=== PATIENT | male | born 1970 ===

== ENCOUNTER → 2018-09-27 | Outpatient (CLI) | payer BC ==
--- NOTE | 2018-09-27 16:02 | Diagnostic Imaging Report ---
PROCEDURE: CT urinary tract, rule out kidney stone. TECHNIQUE: Multiple contiguous axial images were obtained through the abdomen and pelvis without the use of intravenous contrast. INDICATION: Hematuria, right flank pain, and fever. COMPARISON: None. FINDINGS: The lung bases are clear. The heart is normal in size. There is no pericardial effusion. Evaluation of the solid organs is suboptimal in the absence of contrast; however, the liver, spleen, adrenal glands, and pancreas appear normal on this exam. There is no hydronephrosis or hydroureter. No obstructing renal calculi are seen. There is a nonobstructing calculus in the left kidney measuring 6 mm in size. There is mild periureteral fat stranding bilaterally. The bowel loops are nondistended without evidence of obstruction. The appendix is normal. No free fluid or free air is seen. No acute osseous abnormality is seen. IMPRESSION: 1. Nonobstructing calculus in the left kidney. No obstructing renal calculi are seen. 2. Mild periureteral fat stranding bilaterally, please correlate with urinalysis to exclude urinary tract infection. Dictated by: Dictated on workstation # [id number]
== END ==
LOC: RAD 15:18
PROVIDERS: ATTEND Registered Nurse
DX: N20.0 Calculus of kidney (principal)
CPT/HCPCS: 74176

== ENCOUNTER → 2019-01-30 | Outpatient (CLI) | payer BC ==
[~2019-01-30] MED LIST: NITR-65 PO; TAMS0.4C98 PO; TRAM50TA2 PO
== END | disposition home or self-care (01) ==
LOC: PREOP 06:56
PROVIDERS: ATTEND Urology
DX: Z01.818 Encounter for other preprocedural examination (principal)

== ENCOUNTER 2019-01-31 06:21 | Day surgery (SDC) | payer BC ==
[~2019-01-31] VITALS: Ht 177.8 cm; Wt 96.7 kg
[2019-01-31] MEDS ORDERED: cefTRIAXone 1,000 MG IV (ROCEPHIN) VIAL ONE (06:53)
[2019-01-31 06:55] VITALS: BP 134/79
[2019-01-31] MEDS ORDERED: ONDANSETRON 4 MG/2 ML (SDV) Z0FRAN ONE (06:59)
[2019-01-31] MEDS ORDERED: SEVOFLURANE (ULTANE) 15 ML INHAL SOLN ONE (06:59)
[2019-01-31] MEDS ORDERED: MIDAZOLAM 2 MG/2 ML (VERSED) VIAL ONE (06:59)
[2019-01-31] MEDS ORDERED: DEXAMETHASONE 10 MG/ML (DECADRON) 1 ML VIAL ONE (06:59)
[2019-01-31] MEDS ORDERED: proPOfol 200 MG/20 ML (DIPRIVAN) VIAL IV ONE ×2 (06:59→08:42)
[2019-01-31] MEDS ORDERED: FUROSEMIDE 40 MG/4 ML INJ (LASIX) ONE (06:59)
[2019-01-31] MEDS ORDERED: LIDOCAINE PF 2% 5 ML (XYLOCAINE) VIAL ONE (06:59)
[2019-01-31] MEDS ORDERED: KETOROLAC 30 MG/ML VIAL ONE (06:59)
[2019-01-31] MEDS ORDERED: fentaNYL INJECTION 100 MCG/2 ML AMP ONE (06:59)
--- NOTE | 2019-01-31 07:10 | Progress Note-Pre Operative ---
Pre-Operative Progress Note H&P Reviewed The H&P was reviewed, patient examined and no changes noted. Date Seen by Provider: Jan 31, 2019 Time Seen by Provider: 07:10 Date H&P Reviewed: Jan 31, 2019 Time H&P Reviewed: 07:10 Pre-Operative Diagnosis: LT RENAL STONE ANIRUDH ALEX MD Jan 31, 2019 07:10
--- NOTE | 2019-01-31 07:11 | Progress Note-Post Operative ---
Post-Operative Progess Note Surgeon (s)/District Fire Management Officer (s) Surgeon ANIRUDH ALEX MD District Fire Management Officer: NONE Pre-Operative Diagnosis LT RENAL STONE Post-Operative Diagnosis SAME Procedure & Operative Findings Date of Procedure 01/31/19 Procedure Performed/Findings LT ESWL Anesthesia Type GENERAL Estimated Blood Loss Estimated blood loss (mL): NONE Specimens/Packing Specimens Removed NONE Packing: NONE ANIRUDH ALEX MD Jan 31, 2019 07:11
--- NOTE | 2019-01-31 07:13 | Discharge Inst-Urology ---
Discharge Inst-Urology Discharge Medications New, Converted, or Re-newed RX: RX on Chart Patient Instructions/Follow Up Plan Please make appointment to been seen in office in 4 weeks. KUB prior to it KUB on way home Post ESWL instructions Increase oral fluids for 48 hours and then as needed. Diet and Activity as tolerated. If questions or concerns contact your physician Or seek help at emergency department. ANIRUDH ALEX MD Jan 31, 2019 07:13
[2019-01-31] MEDS: LACTATED RINGERS 1,000 ML IV PRN ×2 (08:03→08:35)
--- NOTE | 2019-01-31 08:11 | Diagnostic Imaging Report ---
INDICATION: Status post lithotripsy. COMPARISON: 02/24/2013. FINDINGS: No radiopaque stones along the expected urinary tract path. Nonobstructive bowel gas pattern. Normal regional skeleton. IMPRESSION: No radiographically apparent urinary tract calculi. Dictated by: Dictated on workstation # [id number]
[2019-01-31] MEDS ORDERED: CATHETER FLUSH 10 ML SYR IV PRN (08:15)
[2019-01-31] MEDS ORDERED: cefTRIAXone 1,000 MG/SWFI 10 ML IV PUSH IV ONE ×2 (08:15)
[2019-01-31] MEDS ORDERED: PHENYLEPHRINE 100 MCG/ML 10 ML (ANESTHESIA) SYR ONE (08:45)
[2019-01-31] MEDS ORDERED: ONDANSETRON 4 MG/2 ML (SDV) Z0FRAN IVP PRN (09:00)
[2019-01-31] MEDS ORDERED: fentaNYL INJECTION 100 MCG/2 ML AMP IVP ONE (09:00)
[2019-01-31] MEDS ORDERED: NITR-65 PO (09:11)
[2019-01-31] MEDS ORDERED: TAMS0.4C98 PO (09:13)
[2019-01-31] MEDS ORDERED: TRAM50TA2 PO (09:13)
[2019-01-31 09:45] VITALS: BP 116/79
[2019-01-31 10:15] VITALS: BP 107/73
[2019-01-31 10:45] VITALS: BP 115/79
--- NOTE | 2019-01-31 11:20 | Anesthesia-General Post-Op ---
General Patient Condition Mental Status/LOC: Same as Preop Cardiovascular: Satisfactory Nausea/Vomiting: Absent Respiratory: Satisfactory Pain: Controlled Complications: Absent Post Op Complications Complications None Follow Up Care/Instructions Patient Instructions None needed. Anesthesia/Patient Condition Patient Condition Patient is doing well, no complaints, stable vital signs, no apparent adverse anesthesia problems. No complications reported per nursing. OMAIRA SMITH CRNA Jan 31, 2019 11:20
--- NOTE | 2019-01-31 11:21 | Diagnostic Imaging Report ---
INDICATION: Nephrolithiasis KUB 10:26 AM There is a 3 mm calcification projecting over the inferior pole of the left kidney. Right kidney and ureteral distribution are clear. Bladder appears clear. IMPRESSION: Left nephrolithiasis. Dictated by: Dictated on workstation # [id number]
--- NOTE | 2019-01-31 11:44 | OPERATIVE REPORT ---
DATE OF SERVICE: 01/31/2019 PREOPERATIVE DIAGNOSIS: Left renal stone. POSTOPERATIVE DIAGNOSIS: Left renal stone. OPERATION PERFORMED: Left ESWL. SURGEON: Davi Alex MD. ANESTHESIA: General. COMPLICATIONS: None. DESCRIPTION OF PROCEDURE: Under satisfactory general anesthesia, the patient was supine on the ESWL table. The left renal stone was localized with some difficulty and shocks were delivered at kV of 4. Total of 1500 shocks completely made the stone disappeared. The patient received 40 mg of Lasix and 30 mg of Toradol IV at the end of the procedure. He tolerated the procedure and anesthesia well and was sent to recovery room in stable condition. Job ID: [id number] DocumentID: [id number] Dictated Date: 01/31/2019 08:52:13 Mobile Nurse Date: 01/31/2019 11:44:04 Dictated By: DAVI ALEX MD
== END 2019-01-31 11:20 | disposition home or self-care (01) ==
LOC: SDC 06:21
PROVIDERS: ATTEND Urology
DX: N20.0 Calculus of kidney (principal); Z87.891 Personal history of nicotine dependence
CPT/HCPCS: 74018; 87081

== ENCOUNTER 2019-03-03 15:56 | Outpatient (RCR) | payer BC, OTHER | END 2019-06-01 | disposition home or self-care (01) | LOC: LAB 15:56 | PROVIDERS: ATTEND Urology | DX: N20.0 Calculus of kidney (principal) | CPT/HCPCS: 36415; 82140; 82340; 82507; 82570; 83735; 83945; 83986; 84105; 84133; 84300; 84392; 84560 ==

== ENCOUNTER 2019-09-29 11:01 | Outpatient (RCR) | payer BC ==
[~2019-09-29 11:01] MED LIST changes: -TAMS0.4C98 PO; +TMSL.4C PO; -TRAM50TA2 PO; +TRM50T PO
--- NOTE | 2019-09-29 12:11 | Diagnostic Imaging Report ---
EXAMINATION: Supine abdomen at 1121 hours. INDICATION: Nephrolithiasis. The prior exam of 01/31/2019 noted 3 mm calculus overlying the inferior pole of the left kidney. That finding is difficult to appreciate on this study. There is no other calcific density overlying the kidneys or along the expected paths of the ureters. There is no mass, organomegaly or pathological calcification noted otherwise. The bowel gas pattern is nonspecific. The osseous structures are intact. IMPRESSION: 1. There is no evidence for a calcification overlying the kidneys or the expected paths of the ureters. If further study is desired, then CT of the abdomen and pelvis would be recommended. 2. There is no acute abnormality identified. Dictated by: Dictated on workstation # [id number]
== END 2019-12-28 | disposition home or self-care (01) ==
LOC: RAD 11:01
PROVIDERS: ATTEND Urology
DX: N20.0 Calculus of kidney (principal)
CPT/HCPCS: 36415; 74018; 82140; 82340; 82507; 82570; 83735; 83945; 83986; 84105; 84133; 84300; 84392; 84560

== ENCOUNTER → 2021-10-10 | Outpatient (CLI) | payer BC, OTHER ==
--- NOTE | 2021-10-10 11:03 | Diagnostic Imaging Report ---
PROCEDURE: CT sinuses without contrast TECHNIQUE: Multiple contiguous axial images were obtained through the sinuses without the use of intravenous contrast. Coronal and sagittal reformations were then performed. Auto Exposure Controls were utilized during the CT exam to meet ALARA standards for radiation dose reduction. INDICATION: Frontal head pain and chronic sinusitis. COMPARISON: No relevant comparison. There is a small low-density mucus retention cyst in the floor of the right maxillary sinus measuring 1.3 cm maximal. There is minute amount of membrane thickening in the floor of the left maxillary sinus at about 2 mm thickness. There is small leftward nasal septal spur. The turbinates unremarkable. The ethmoid air cells clear. The ostiomeatal units appeared normal. The maxillary sinus ostia bilaterally widely patent. Frontal sinuses clear and well aerated. The nasal bones unremarkable. Frontal sinuses clear. There is no mastoid effusion, external auditory canals and middle ear cavities normal. Sphenoid sinuses clear and well aerated. The orbital contents unremarkable. IMPRESSION: Very mild bilateral maxillary sinus membrane disease with small right mucus retention cyst. No ostial obstruction, bony destruction or air-fluid levels. Dictated by: Dictated on workstation # [id number]
== END ==
LOC: RAD 09:15
PROVIDERS: ATTEND Otolaryngology Otolaryngology/Facial Plastic Surgery
DX: J34.1 Cyst and mucocele of nose and nasal sinus (principal); J32.9 Chronic sinusitis, unspecified
CPT/HCPCS: 70486

== ENCOUNTER 2023-05-12 07:01 | Outpatient (CLI) | payer BC ==
[~2023-05-12] VITALS: Ht 177.8 cm; Wt 103.9 kg
[2023-05-12] MEDS ORDERED: NAPR-1070 PO (10:34)
[2023-05-12] MEDS ORDERED: NF-VITD400 PO (10:34)
[2023-05-12] MEDS ORDERED: OMEP20TA56 PO (10:34)
== END 2023-05-12 10:35 ==
LOC: PREOP 07:01
PROVIDERS: ATTEND Surgery
DX: Z01.818 Encounter for other preprocedural examination (principal)

== ENCOUNTER 2023-05-21 10:17 | Day surgery (SDC) | payer BC ==
[~2023-05-21] VITALS: Ht 178 cm; Wt 103.9 kg
[~2023-05-21 10:17] MED LIST changes: +NAPR-1070 PO; +NF-VITD400 PO; +OMEP20TA56 PO
[2023-05-21] MEDS ORDERED: LACTATED RINGERS 1,000 ML IV STA (10:18)
[2023-05-21] MEDS ORDERED: HURRICAINE EXT TUBE (BENZOCAINE) ONE (10:29)
[2023-05-21] MEDS ORDERED: LACTATED RINGERS 1,000 ML IV ONE (10:29)
[2023-05-21] MEDS ORDERED: HURRICAINE EXT TUBE (BENZOCAINE) XX PRN (10:30)
[2023-05-21 10:40] VITALS: BP 142/79
--- NOTE | 2023-05-21 11:00 | Progress Note-Pre Operative ---
Pre-Operative Progress Note Date of Available H&P: May 04, 2023 Date H&P Reviewed: May 21, 2023 Time H&P Reviewed: 10:56 History & Physical: H&P Reviewed, Patient Examed, No changes noted Pre-Operative Diagnosis: GERD, Screening ROBERTO CORCORAN DO May 21, 2023 11:00
[2023-05-21] MEDS ORDERED: MIDAZOLAM 2 MG/2 ML (VERSED) VIAL ONE (11:31)
[2023-05-21] MEDS ORDERED: PROPOFOL INJECTION 50 ML IV ONE (11:31)
--- NOTE | 2023-05-21 12:04 | Anesthesia-General Post-Op ---
MAC Patient Condition Mental Status/LOC: Same as Preop Cardiovascular: Satisfactory Nausea/Vomiting: Absent Respiratory: Satisfactory Pain: Controlled Complications: Absent Post Op Complications Complications None Follow Up Care/Instructions Patient Instructions None needed. Anesthesiology Discharge Order Discharge Order Patient is doing well, no complaints, stable vital signs, no apparent adverse anesthesia problems. No complications reported per nursing. SHALINI SIMPSON CRNA May 21, 2023 12:04
[2023-05-21 12:05] VITALS: BP 87/58
[2023-05-21 12:10] VITALS: BP 95/58
--- NOTE | 2023-05-21 12:13 | Progress Note-Post Operative ---
Post-Operative Progess Note Surgeon (s)/Pump House Operator (s) Surgeon ROBERTO CORCORAN DO Pump House Operator: none Pre-Operative Diagnosis GERD, Screening Post-Operative Diagnosis Gastritis Esophagitis possible [place]'s Polyp int hemorrhoids Procedure & Operative Findings Date of Procedure 05/21/23 Procedure Performed/Findings EGD with biopsy Colonoscopy with biopsy PROCEDURE NOTE: After informed consent was obtained, the patient was brought to the endoscopy suite, placed in bed in left lateral decubitus position. He was administered IV sedation by the [employer] who then monitored vitals the entire time, heart rate, blood pressure and pulse ox and the scope was inserted down the mouth through the esophagus into the stomach. On the way down, noted some moderate to severe esophagitis, took a picture, pushed into the stomach, pushed past the antrum into the duodenum. Duodenum looked good. Pulled back and did a biopsy of the antrum, then retroflexed the scope, saw hiatal hernia, took a picture of this and then pulled the scope into the GE junction, took another picture of the hiatal hernia and then did a biopsy of the GE junction. Pushed the scope back into the stomach, suctioned all the air out of the stomach. At this point pulled the scope up the esophagus and out the mouth. Switched camera, switched gloves, went down below and started the colonoscopy. Pushed all the way to about 150 cm and pushed into the cecum, took a picture of appendiceal orifice and noted the ileocecal valve. Then slowly withdrew the scope insufflating to look circumferentially at the wood starting in the cecum, up the ascending colon to the hepatic flexure, then down the transverse colon. Found a small flat polyp and did a biopsy of it. Then to the splenic flexure, into the descending colon down and found another polyp. I did another biopsy of this and finally into the sigmoid and then into the rectal vault. Retroflexed the scope. Took a picture of the internal hemorrhoids. The patient tolerated the procedure and he recovered in the endoscopy suite. Recommended for repeat colonoscopy in 5 years Anesthesia Type IV sedation by [employer] Estimated Blood Loss Estimated blood loss (mL): scant Specimens/Packing Specimens Removed antral bx GE jxn bx Polyps int hemorrhoids ROBERTO CORCORAN DO May 21, 2023 12:13
--- NOTE | 2023-05-21 12:17 | Endoscopy Discharge Instruct ---
Endo Procedure/Findings Findings 1.: Gastritis 2.: Hiatal Hernia 3.: Polyp 4.: Internal Hemorrhoids Discharge Instructions - Activity: You might feel a little sleepy until tomorrow. This is due to the medicine you received to relax you. Until tomorrow, you should: NOT drive a car, operate machinery or power tools. NOT drink any alcoholic beverages. NOT make any important decisions or sign importortant papers. Do not return to work until tomorrow, unless otherwise instructed. Resume previous activities tomorrow. Diet: Start by taking liquids. If you tolerate liquids, advance to solid food. 1.: EGD in 1 year 2.: Colonscopy in 5 years Notify Physician - If you experience excessive bleeding, unusual abdominal pain, fever, or chest pain, contact your doctor immediately. Follow-Up: Other Follow up in my office in one week ROBERTO CORCORAN DO May 21, 2023 12:17
[2023-05-21 12:21] VITALS: BP 95/58
[2023-05-21 12:44] VITALS: BP 95/58
== END 2023-05-21 12:30 | disposition home or self-care (01) ==
LOC: ENDO 10:17
PROVIDERS: ATTEND Surgery
DX: Z12.11 Encounter for screening for malignant neoplasm of colon (principal); D12.3 Benign neoplasm of transverse colon; D12.4 Benign neoplasm of descending colon; K64.8 Other hemorrhoids; K29.70 Gastritis, unspecified, without bleeding; K21.00 Gastro-esophageal reflux disease with esophagitis, without bleeding; Z87.891 Personal history of nicotine dependence; E66.9 Obesity, unspecified; Z68.32 Body mass index [BMI] 32.0-32.9, adult; K31.89 Other diseases of stomach and duodenum

== ENCOUNTER → 2023-06-18 | Outpatient (CLI) | payer BC ==
--- NOTE | 2023-06-18 14:17 | Diagnostic Imaging Report ---
EXAMINATION: US Thyroid. TECHNIQUE: Multiple real-time grayscale images were obtained of the thyroid in various projections. HISTORY: NONTOXIC DIFFUSE GOITER COMPARISON: None available. FINDINGS: The right lobe of the thyroid measures 5.2 x 1.9 x 1.9 cm. The left lobe of the thyroid measures 4.9 x 1.7 x 2.0 cm. The isthmus measures 0.3 cm. The size and echogenicity of the thyroid is normal. There are no nodules. There are normal-appearing lymph nodes in the neck. IMPRESSION: 1. Normal thyroid gland. TI-RADS categories: TI-RADS 1: Benign No FNA or follow-up required TI-RADS 2: Not Suspicious No FNA or follow-up required TI-RADS 3: Mildly Suspicious FNA if ? 2.5 cm Follow if ? 1.5 cm (At 1, 3 and 5 years from initial scan) TI-RADS 4: Moderately Suspicious FNA if ? 1.5 cm Follow if ? 1 cm (At 1, 2, 3 and 5 years from initial scan) TI-RADS 5: Highly Suspicious FNA if ? 1 cm Follow if ? 0.5 cm (Annually for 5 years from initial scan) Dictated by: Dictated on workstation # [id number]
== END ==
LOC: RAD 07:27
PROVIDERS: ATTEND Nurse Practitioner Family
DX: E04.9 Nontoxic goiter, unspecified (principal); R59.0 Localized enlarged lymph nodes
CPT/HCPCS: 76536